=== PATIENT | female | born 1975 | race Caucasian/White ===

== ENCOUNTER 2017-03-07 11:32 | Emergency (ER) | payer OTHER ==
[~2017-03-07] VITALS: Ht 149.9 cm; Wt 62.2 kg
[~2017-03-07 11:32] MED LIST: FLUD.1 PO; LEVE1000 PO; LORA1TAB3 PO; OMEP20 PO; SERT100T12 PO; SUMA25TA9 PO; TOPI100T37 PO
[2017-03-07] MEDS ORDERED: LORA10TA7 PO (11:51)
[2017-03-07] MEDS ORDERED: GABA-529 PO (11:51)
[2017-03-07] MEDS ORDERED: LORazepam 2 MG/ML VIAL IVP ONE (12:15)
[2017-03-07] MEDS ORDERED: LevETIRAcetam 500 MG in DEXTROSE 5%-WATER 100 ML IV ONE (12:15)
[2017-03-07 12:30] LABS: GLUCOSE, URINE (UA) NEGATIVE (NEGATIVE); KETONES,URINE NEGATIVE (NEGATIVE); LEUKOCYTE ESTERASE ,URINE TRACE (NEGATIVE); OCCULT BLOOD,URINE MODERATE (NEGATIVE); PROTEIN,URINE NEGATIVE (NEGATIVE)
[2017-03-07 12:32] LABS: ADD UA MICROSCOPIC YES; APPEARANCE,URINE HAZY (CLEAR)
[2017-03-07 12:37] LABS: SQUAMOUS EPITHELIAL CELL,UR Moderate /LPF (None Seen)
[2017-03-07 12:45] LABS: BASOPHILS # (AUTO) 0.01 K/uL (0.00-0.20); BASOPHILS % (AUTO) 0.1 % (0.0-2.0); EOSINOPHILS # (AUTO) 0.04 K/uL (0.00-0.70); EOSINOPHILS % (AUTO) 0.67 % (1.0-6.0); HEMATOCRIT 35.7 % (36-46); HEMOGLOBIN 12.3 g/dL (12.0-16.0); LYMPHOCYTES # (AUTO) 1.7 K/uL (1.0-4.8); LYMPHOCYTES % (AUTO) 26.2 % (22.0-44.0); MEAN CORPUSCULAR HEMOGLOBIN 31.5 pg (26.0-34.0); MEAN CORPUSCULAR HGB CONC 34.5 G/dL (31.0-37.0); MEAN CORPUSCULAR VOLUME 91 fL (80-100); MONOCYTES # (AUTO) 0.4 K/uL (0.1-1.0); NEUTROPHILS # (AUTO) 4.5 K/uL (1.8-7.7); NEUTROPHILS % (AUTO) 67.1 % (40.0-70.0); PLATELET COUNT (AUTO) 223 K/uL (150-450); RED CELL DISTRIBUTION WIDTH 13.6 % (11.5-14.5); WHITE BLOOD COUNT (AUTO) 6.6 K/uL (4.5-11.0)
[2017-03-07 12:59] LABS: ANION GAP 9 mmol/L (8-16); CALCIUM, TOTAL 8.6 mg/dL (8.8-10.5); CARBON DIOXIDE 25 mmol/L (22-29); CHLORIDE 107 mmol/L (98-107); CREATININE 0.64 mg/dL (0.60-1.30); GLOMERULAR FILTR. RATE CALC > 60 mL/min (>60); POTASSIUM 3.7 mmol/L (3.5-5.1); SODIUM SERUM 141 mmol/L (136-145); UREA NITROGEN, BLOOD 14 mg/dL (7-18)
[2017-03-07 13:01] LABS: ALANINE AMINOTRANSFERASE 42 U/L (12-78); ALBUMIN 3.5 g/dL (3.4-5.0); ASPARTATE AMINOTRANSFERASE 32 U/L (15-37); BILIRUBIN,TOTAL 0.2 mg/dL (0.1-1.0); TOTAL PROTEIN, SERUM 7.2 g/dL (6.4-8.2)
[2017-03-07] MEDS ORDERED: SODIUM CHLORIDE 0.9% 1,000 ML IV ONE ×3 (13:15)
[2017-03-07 14:42] VITALS: BP 96/60
== END 2017-03-07 14:44 | disposition home or self-care (01) ==
LOC: EMS 11:34
DX: G40.909 Epilepsy, unspecified, not intractable, without status epilepticus (principal); F32.9 Major depressive disorder, single episode, unspecified; F41.9 Anxiety disorder, unspecified; Z88.8 Allergy status to other drugs, medicaments and biological substances
CPT/HCPCS: 36415; 80053; 81001; 85025; 96361; 96365; 96374; 99284; J0712; J2060; J7030; J7060

== ENCOUNTER 2017-03-12 21:56 | Emergency (ER) | payer OTHER ==
[~2017-03-12] VITALS: Ht 149.9 cm; Wt 61.5 kg
[~2017-03-12 21:56] MED LIST changes: +GABA-529 PO; +LORA10TA7 PO
[2017-03-12] MEDS ORDERED: CEPH500 PO (21:59)
[2017-03-12 22:33] LABS: BASOPHILS % (AUTO) 0.5 % (0.0-2.0); HEMATOCRIT 37.2 % (36-46); HEMOGLOBIN 12.7 g/dL (12.0-16.0); LYMPHOCYTES # (AUTO) 2.4 K/uL (1.0-4.8); LYMPHOCYTES % (AUTO) 31.8 % (22.0-44.0); MEAN CORPUSCULAR HEMOGLOBIN 31.5 pg (26.0-34.0); MEAN CORPUSCULAR HGB CONC 34.2 G/dL (31.0-37.0); MEAN CORPUSCULAR VOLUME 92 fL (80-100); MONOCYTES # (AUTO) 0.6 K/uL (0.1-1.0); MONOCYTES % (AUTO) 7.6 % (2.0-9.0); NEUTROPHILS # (AUTO) 4.4 K/uL (1.8-7.7); NEUTROPHILS % (AUTO) 59.1 % (40.0-70.0); PLATELET COUNT (AUTO) 263 K/uL (150-450); RED BLOOD CELL COUNT(AUTO) 4.04 MIL/uL (4.00-5.20); RED CELL DISTRIBUTION WIDTH 13.2 % (11.5-14.5); WHITE BLOOD COUNT (AUTO) 7.4 K/uL (4.5-11.0)
[2017-03-12 23:12] LABS: ANION GAP 10 mmol/L (8-16); CARBON DIOXIDE 24 mmol/L (22-29); CHLORIDE 104 mmol/L (98-107); CREATININE 0.78 mg/dL (0.60-1.30); GLOMERULAR FILTR. RATE CALC > 60 mL/min (>60); POTASSIUM 3.2 mmol/L (3.5-5.1); SODIUM SERUM 138 mmol/L (136-145); UREA NITROGEN, BLOOD 11 mg/dL (7-18)
[2017-03-12 23:19] LABS: ALANINE AMINOTRANSFERASE 38 U/L (12-78); ALBUMIN 3.8 g/dL (3.4-5.0); ASPARTATE AMINOTRANSFERASE 19 U/L (15-37); BILIRUBIN,TOTAL 0.2 mg/dL (0.1-1.0); TOTAL PROTEIN, SERUM 7.8 g/dL (6.4-8.2)
[2017-03-13] MEDS ORDERED: LevETIRAcetam 1,000 MG in DEXTROSE 5%-WATER 100 ML IV ONE (01:30)
[2017-03-13] MEDS ORDERED: LORazepam 2 MG/ML VIAL IVP ONE (01:30)
[2017-03-13] MEDS ORDERED: POTASSIUM CHLORIDE 10% 40 MEQ/30 ML LIQUID UDCUP PO ONE (01:30)
[2017-03-13 01:33] LABS: APPEARANCE,URINE CLEAR (CLEAR); GLUCOSE, URINE (UA) NEGATIVE (NEGATIVE); KETONES,URINE NEGATIVE (NEGATIVE); LEUKOCYTE ESTERASE ,URINE NEGATIVE (NEGATIVE); OCCULT BLOOD,URINE NEGATIVE (NEGATIVE); PH,URINE 6.5 (5.0-8.0); PROTEIN,URINE NEGATIVE (NEGATIVE)
[2017-03-13 01:34] LABS: ADD UA MICROSCOPIC NO
[2017-03-13 03:03] VITALS: BP 102/62
[2017-03-13] MEDS ORDERED: ALBU8.5H8 IH (03:25)
[2017-03-13] MEDS ORDERED: MOME13HF2 IH (03:25)
[2017-03-13] MEDS ORDERED: FLUT16H NASAL (03:25)
[2017-03-13] MEDS ORDERED: LEVE500T53 PO (03:29)
[2017-03-13] MEDS ORDERED: LORazepam 2 MG TABLET PO ONE (04:00)
== END 2017-03-13 04:04 | disposition home or self-care (01) ==
LOC: EMS 21:57
DX: G40.909 Epilepsy, unspecified, not intractable, without status epilepticus (principal); E87.6 Hypokalemia; Z88.8 Allergy status to other drugs, medicaments and biological substances
CPT/HCPCS: 36415; 80053; 80307; 81003; 84703; 85025; 96361; 96374; 99284; J0712; J2060; J7060

== ENCOUNTER 2017-03-14 14:48 | Emergency (ER) | payer OTHER ==
[~2017-03-14] VITALS: Ht 149.9 cm; Wt 59.1 kg
[~2017-03-14 14:48] MED LIST changes: +ALBU8.5H8 IH; +CEPH500 PO; +FLUT16H NASAL; +LEVE500T53 PO; +MOME13HF2 IH
[2017-03-14] MEDS ORDERED: SODIUM CHLORIDE 0.9% 1,000 ML IV ONE (15:30)
[2017-03-14 15:44] LABS: BASOPHILS % (AUTO) 0.5 % (0.0-2.0); EOSINOPHILS % (AUTO) 0.7 % (1.0-6.0); HEMATOCRIT 35.9 % (36-46); HEMOGLOBIN 12.1 g/dL (12.0-16.0); LYMPHOCYTES # (AUTO) 1.7 K/uL (1.0-4.8); LYMPHOCYTES % (AUTO) 21.4 % (22.0-44.0); MEAN CORPUSCULAR HEMOGLOBIN 31.2 pg (26.0-34.0); MEAN CORPUSCULAR HGB CONC 33.8 G/dL (31.0-37.0); MEAN CORPUSCULAR VOLUME 92 fL (80-100); MONOCYTES # (AUTO) 0.4 K/uL (0.1-1.0); MONOCYTES % (AUTO) 5.4 % (2.0-9.0); NEUTROPHILS # (AUTO) 5.6 K/uL (1.8-7.7); PLATELET COUNT (AUTO) 269 K/uL (150-450); RED BLOOD CELL COUNT(AUTO) 3.89 MIL/uL (4.00-5.20); RED CELL DISTRIBUTION WIDTH 13.4 % (11.5-14.5); WHITE BLOOD COUNT (AUTO) 7.8 K/uL (4.5-11.0)
[2017-03-14 15:57] LABS: GLUCOSE,POINT OF CARE 84 MG/DL (70-110)
[2017-03-14 16:01] LABS: ANION GAP 12 mmol/L (8-16); CALCIUM, TOTAL 8.7 mg/dL (8.8-10.5); CARBON DIOXIDE 22 mmol/L (22-29); CHLORIDE 106 mmol/L (98-107); CREATININE 0.64 mg/dL (0.60-1.30); GLOMERULAR FILTR. RATE CALC > 60 mL/min (>60); POTASSIUM 3.6 mmol/L (3.5-5.1); SODIUM SERUM 140 mmol/L (136-145); UREA NITROGEN, BLOOD 8 mg/dL (7-18)
[2017-03-14 16:05] LABS: ALANINE AMINOTRANSFERASE 35 U/L (12-78); ALBUMIN 3.7 g/dL (3.4-5.0); ASPARTATE AMINOTRANSFERASE 17 U/L (15-37); BILIRUBIN,TOTAL 0.3 mg/dL (0.1-1.0); TOTAL PROTEIN, SERUM 7.6 g/dL (6.4-8.2)
[2017-03-14 16:57] VITALS: BP 102/82
== END 2017-03-14 16:58 | disposition home or self-care (01) ==
LOC: EMS 14:51
DX: G40.909 Epilepsy, unspecified, not intractable, without status epilepticus (principal); Z88.8 Allergy status to other drugs, medicaments and biological substances
CPT/HCPCS: 36415; 70450; 80053; 81025; 82948; 82962; 84484; 85025; 93005; 96360; 99285; J7030

== ENCOUNTER 2017-03-22 11:11 | Emergency (ER) | payer OTHER ==
[~2017-03-22] VITALS: Ht 149.9 cm; Wt 59.0 kg
[~2017-03-22 11:11] MED LIST changes: -LEVE1000 PO; -LORA10TA7 PO; -OMEP20 PO; -SUMA25TA9 PO
[2017-03-22] MEDS ORDERED: LORA10TA7 PO (11:41)
[2017-03-22] MEDS ORDERED: OMEP20 PO (11:41)
[2017-03-22] MEDS ORDERED: CETI-290 PO (11:41)
[2017-03-22] MEDS ORDERED: ZOLM2.5T6 PO (11:41)
[2017-03-22 11:42] LABS: GLUCOSE,POINT OF CARE 107 MG/DL (70-110)
[2017-03-22 13:24] VITALS: BP 95/51
== END 2017-03-22 14:20 | disposition home or self-care (01) ==
LOC: EMS 11:13
DX: R56.9 Unspecified convulsions (principal); Z88.8 Allergy status to other drugs, medicaments and biological substances
CPT/HCPCS: 81025; 82962; 99283

== ENCOUNTER 2017-05-17 19:23 | Emergency (ER) | payer OTHER ==
[~2017-05-17] VITALS: Ht 149.9 cm; Wt 66.8 kg
[~2017-05-17 19:23] MED LIST changes: +CETI-290 PO; +LORA10TA7 PO; +OMEP20 PO; +ZOLM2.5T6 PO
[2017-05-17 20:32] LABS: BASOPHILS # (AUTO) 0.03 K/uL (0.00-0.20); BASOPHILS % (AUTO) 0.5 % (0.0-2.0); EOSINOPHILS # (AUTO) 0.06 K/uL (0.00-0.70); EOSINOPHILS % (AUTO) 0.79 % (1.0-6.0); HEMATOCRIT 37.4 % (36-46); HEMOGLOBIN 12.8 g/dL (12.0-16.0); LYMPHOCYTES # (AUTO) 2.2 K/uL (1.0-4.8); LYMPHOCYTES % (AUTO) 28.2 % (22.0-44.0); MEAN CORPUSCULAR HEMOGLOBIN 31.3 pg (26.0-34.0); MEAN CORPUSCULAR HGB CONC 34.2 G/dL (31.0-37.0); MEAN CORPUSCULAR VOLUME 92 fL (80-100); MONOCYTES # (AUTO) 0.5 K/uL (0.1-1.0); MONOCYTES % (AUTO) 6.3 % (2.0-9.0); NEUTROPHILS % (AUTO) 64.3 % (40.0-70.0); PLATELET COUNT (AUTO) 230 K/uL (150-450); RED BLOOD CELL COUNT(AUTO) 4.09 MIL/uL (4.00-5.20); RED CELL DISTRIBUTION WIDTH 13.3 % (11.5-14.5); WHITE BLOOD COUNT (AUTO) 7.7 K/uL (4.5-11.0)
[2017-05-17 20:52] LABS: ANION GAP 9 mmol/L (8-16); CALCIUM, TOTAL 8.7 mg/dL (8.8-10.5); CARBON DIOXIDE 23 mmol/L (22-29); CHLORIDE 105 mmol/L (98-107); CREATININE 0.64 mg/dL (0.60-1.30); GLOMERULAR FILTR. RATE CALC > 60 mL/min (>60); POTASSIUM 3.3 mmol/L (3.5-5.1); SODIUM SERUM 137 mmol/L (136-145); UREA NITROGEN, BLOOD 10 mg/dL (7-18)
[2017-05-17 20:58] LABS: ALANINE AMINOTRANSFERASE 27 U/L (12-78); ALBUMIN 3.6 g/dL (3.4-5.0); ASPARTATE AMINOTRANSFERASE 21 U/L (15-37); BILIRUBIN,TOTAL 0.2 mg/dL (0.1-1.0); THYROID STIMULATING HORMONE 4.46 uIU/mL (0.36-3.74); TOTAL PROTEIN, SERUM 7.5 g/dL (6.4-8.2)
[2017-05-17] MEDS ORDERED: SODIUM CHLORIDE 0.9% 1,000 ML IV ONE (21:15)
[2017-05-17] MEDS ORDERED: ALPRAZolam 0.25 MG TABLET PO ONE (21:30)
[2017-05-17 21:56] LABS: APPEARANCE,URINE CLEAR (CLEAR); GLUCOSE, URINE (UA) NEGATIVE (NEGATIVE); KETONES,URINE NEGATIVE (NEGATIVE); LEUKOCYTE ESTERASE ,URINE NEGATIVE (NEGATIVE); PROTEIN,URINE NEGATIVE (NEGATIVE)
[2017-05-17 22:05] LABS: ADD UA MICROSCOPIC YES; OCCULT BLOOD,URINE SMALL (NEGATIVE); WBC,URINE None Seen /HPF (0-5)
[2017-05-17 22:06] LABS: SQUAMOUS EPITHELIAL CELL,UR Moderate /LPF (None Seen)
[2017-05-17] MEDS ORDERED: ACETAMINOPHEN 500 MG TABLET PO ONE (22:30)
[2017-05-17 23:07] VITALS: BP 91/9
== END 2017-05-17 23:24 | disposition home or self-care (01) ==
LOC: EMS 19:23
DX: G40.909 Epilepsy, unspecified, not intractable, without status epilepticus (principal); Z91.14 Patient's other noncompliance with medication regimen; Z88.8 Allergy status to other drugs, medicaments and biological substances
CPT/HCPCS: 36415; 80053; 80307; 81001; 84443; 85025; 96360; 96361; 99285; G0480; G0482; J7030

== ENCOUNTER 2017-05-19 16:53 | Emergency (ER) | payer OTHER ==
[~2017-05-19] VITALS: Ht 149.9 cm; Wt 66.8 kg
[~2017-05-19 16:53] MED LIST changes: -CEPH500 PO; -CETI-290 PO; -GABA-529 PO; -LORA10TA7 PO
[2017-05-19 19:27] LABS: BASOPHILS % (AUTO) 0.4 % (0.0-2.0); EOSINOPHILS % (AUTO) 0.7 % (1.0-6.0); HEMATOCRIT 37.8 % (36-46); HEMOGLOBIN 12.8 g/dL (12.0-16.0); LYMPHOCYTES # (AUTO) 1.8 K/uL (1.0-4.8); LYMPHOCYTES % (AUTO) 22.6 % (22.0-44.0); MEAN CORPUSCULAR HEMOGLOBIN 31.2 pg (26.0-34.0); MEAN CORPUSCULAR VOLUME 92 fL (80-100); MONOCYTES # (AUTO) 0.5 K/uL (0.1-1.0); MONOCYTES % (AUTO) 6.5 % (2.0-9.0); NEUTROPHILS # (AUTO) 5.4 K/uL (1.8-7.7); NEUTROPHILS % (AUTO) 69.8 % (40.0-70.0); PLATELET COUNT (AUTO) 269 K/uL (150-450); RED BLOOD CELL COUNT(AUTO) 4.11 MIL/uL (4.00-5.20); RED CELL DISTRIBUTION WIDTH 13.4 % (11.5-14.5); WHITE BLOOD COUNT (AUTO) 7.8 K/uL (4.5-11.0)
[2017-05-19 19:38] LABS: ANION GAP 10 mmol/L (8-16); CALCIUM, TOTAL 9.1 mg/dL (8.8-10.5); CARBON DIOXIDE 24 mmol/L (22-29); CHLORIDE 107 mmol/L (98-107); CREATININE 0.63 mg/dL (0.60-1.30); GLOMERULAR FILTR. RATE CALC > 60 mL/min (>60); SODIUM SERUM 141 mmol/L (136-145); UREA NITROGEN, BLOOD 14 mg/dL (7-18)
[2017-05-19 19:43] LABS: ALANINE AMINOTRANSFERASE 27 U/L (12-78); ALBUMIN 3.6 g/dL (3.4-5.0); ASPARTATE AMINOTRANSFERASE 16 U/L (15-37); BILIRUBIN,TOTAL 0.2 mg/dL (0.1-1.0); TOTAL PROTEIN, SERUM 7.8 g/dL (6.4-8.2)
[2017-05-19 20:28] LABS: APPEARANCE,URINE CLOUDY (CLEAR); GLUCOSE, URINE (UA) NEGATIVE (NEGATIVE); KETONES,URINE NEGATIVE (NEGATIVE); LEUKOCYTE ESTERASE ,URINE NEGATIVE (NEGATIVE); OCCULT BLOOD,URINE TRACE (NEGATIVE); PH,URINE 5.5 (5.0-8.0); PROTEIN,URINE NEGATIVE (NEGATIVE)
[2017-05-19 21:01] LABS: RBC,URINE 0-2 /HPF (0-2); SQUAMOUS EPITHELIAL CELL,UR Many /LPF (None Seen); WBC,URINE 0-2 /HPF (0-5)
[2017-05-19 21:05] VITALS: BP 110/60
== END 2017-05-19 21:07 | disposition home or self-care (01) ==
LOC: EMS 16:54
DX: F41.9 Anxiety disorder, unspecified (principal); G40.909 Epilepsy, unspecified, not intractable, without status epilepticus; F31.9 Bipolar disorder, unspecified; K21.9 Gastro-esophageal reflux disease without esophagitis; Z88.8 Allergy status to other drugs, medicaments and biological substances
CPT/HCPCS: 81025; 99284

== ENCOUNTER 2017-08-11 16:59 | Emergency (ER) | payer OTHER ==
[~2017-08-11] VITALS: Ht 149.9 cm; Wt 65.9 kg
[2017-08-11] MEDS ORDERED: MONT10TA21 PO (17:18)
[2017-08-11] MEDS ORDERED: MOME13HF IH (17:18)
[2017-08-11] MEDS ORDERED: LORA10TA7 PO (17:18)
[2017-08-11] MEDS ORDERED: NAPR-1193 PO (17:18)
[2017-08-11] MEDS ORDERED: LORazepam 2 MG TABLET PO ONE (17:30)
[2017-08-11 18:25] VITALS: BP 102/57
== END 2017-08-11 18:56 | disposition home or self-care (01) ==
LOC: EMS 17:00
DX: G40.909 Epilepsy, unspecified, not intractable, without status epilepticus (principal); F41.9 Anxiety disorder, unspecified; F13.20 Sedative, hypnotic or anxiolytic dependence, uncomplicated; F31.9 Bipolar disorder, unspecified
CPT/HCPCS: 99283

== ENCOUNTER 2017-12-09 03:20 | Emergency (ER) | payer OTHER ==
[~2017-12-09] VITALS: Ht 165.1 cm; Wt 65.9 kg
[~2017-12-09 03:20] MED LIST changes: +LORA10TA7 PO; +MOME13HF IH; -MOME13HF2 IH; +MONT10TA21 PO; +NAPR-1193 PO
[2017-12-09] MEDS ORDERED: DiphenhydrAMINE HCL 50 MG/ML VIAL IM ONE (05:30)
[2017-12-09 06:03] VITALS: BP 114/60
== END 2017-12-09 06:07 | disposition home or self-care (01) ==
LOC: EMS 03:20
DX: F41.9 Anxiety disorder, unspecified (principal); R07.89 Other chest pain; R45.4 Irritability and anger; F31.9 Bipolar disorder, unspecified; Z88.8 Allergy status to other drugs, medicaments and biological substances
CPT/HCPCS: 96372; 99284; J1200

== ENCOUNTER 2018-02-05 19:37 | Emergency (ER) | payer OTHER ==
[~2018-02-05] VITALS: Ht 149.9 cm; Wt 68.0 kg
[2018-02-05] MEDS ORDERED: IBUP-2070 PO (20:05)
[2018-02-05] MEDS ORDERED: ZOLM2.5T6 PO (20:23)
[2018-02-05] MEDS ORDERED: OMEP20 PO (20:23)
[2018-02-05] MEDS ORDERED: FLUD0.1T2 PO (20:23)
[2018-02-05] MEDS ORDERED: FLUT9.9S NASAL (20:23)
[2018-02-05] MEDS ORDERED: SERT100T12 PO (20:23)
[2018-02-05] MEDS ORDERED: LORA-192 PO (20:23)
[2018-02-05] MEDS ORDERED: MOME13HF IH (20:23)
[2018-02-05 20:50] VITALS: BP 109/52
== END 2018-02-05 20:52 | disposition home or self-care (01) ==
LOC: EMS 19:38
DX: G40.909 Epilepsy, unspecified, not intractable, without status epilepticus (principal); F41.9 Anxiety disorder, unspecified; F31.9 Bipolar disorder, unspecified; Z88.8 Allergy status to other drugs, medicaments and biological substances; Z88.5 Allergy status to narcotic agent
CPT/HCPCS: 99283

== ENCOUNTER 2018-03-20 20:15 | Emergency (ER) | payer OTHER ==
[~2018-03-20] VITALS: Ht 149.9 cm; Wt 64.5 kg
[~2018-03-20 20:15] MED LIST changes: -FLUD.1 PO; +FLUD0.1T2 PO; -FLUT16H NASAL; +FLUT9.9S NASAL; +IBUP-2070 PO; +LORA-192 PO; -LORA10TA7 PO; -LORA1TAB3 PO; -MONT10TA21 PO; -NAPR-1193 PO
[2018-03-20 20:24] VITALS: BP 102/59
== END 2018-03-20 21:40 | disposition left against medical advice (07) ==
LOC: EMS 20:18
DX: R51 Headache (principal); F41.9 Anxiety disorder, unspecified; F31.9 Bipolar disorder, unspecified; Z53.21 Procedure and treatment not carried out due to patient leaving prior to being seen by health care provider

== ENCOUNTER 2018-09-30 04:58 | Emergency (ER) | payer OTHER ==
[~2018-09-30] VITALS: Ht 149.9 cm; Wt 61.8 kg
[2018-09-30 06:39] VITALS: BP 112/60
[2018-09-30] MEDS ORDERED: LORazepam 2 MG TABLET PO ONE (06:45)
[2018-10-01] MEDS ORDERED: LEVE500T53 PO (17:57)
[2018-10-01] MEDS ORDERED: FLUT16H NASAL (17:57)
[2018-10-01] MEDS ORDERED: TOPI100T37 PO (17:57)
[2018-10-01] MEDS ORDERED: FLUD.1 PO (17:57)
[2018-10-01] MEDS ORDERED: ALBU8.5H8 IH (17:57)
[2018-10-01] MEDS ORDERED: BACL10TA PO (17:57)
[2018-10-01] MEDS ORDERED: OMEP20 PO (17:57)
[2018-10-01] MEDS ORDERED: LORA2TAB2 PO (17:57)
[2018-10-01] MEDS ORDERED: MOME13HF IH (17:57)
[2018-10-01] MEDS ORDERED: ZOLM2.5T6 PO (17:57)
[2018-10-01] MEDS ORDERED: IBUP-2070 PO (17:57)
[2018-10-01] MEDS ORDERED: SERT100T12 PO (17:57)
== END 2018-09-30 06:48 | disposition home or self-care (01) ==
LOC: EMS 04:59
DX: F41.9 Anxiety disorder, unspecified (principal); F31.9 Bipolar disorder, unspecified; F11.20 Opioid dependence, uncomplicated; Z79.899 Other long term (current) drug therapy; Z88.8 Allergy status to other drugs, medicaments and biological substances

== ENCOUNTER 2018-10-01 13:51 | Emergency (ER) | payer OTHER ==
[~2018-10-01] VITALS: Ht 162.6 cm; Wt 54.1 kg
[2018-10-01] MEDS ORDERED: LORazepam 2 MG/ML VIAL IM ONE (15:00)
[2018-10-01 15:01] LABS: BASOPHILS % (AUTO) 0.7 % (0.0-2.0); EOSINOPHILS % (AUTO) 0.4 % (1.0-6.0); HEMATOCRIT 39.5 % (36-46); LYMPHOCYTES # (AUTO) 1.7 K/uL (1.0-4.8); MEAN CORPUSCULAR HEMOGLOBIN 31.4 pg (26.0-34.0); MEAN CORPUSCULAR VOLUME 95 fL (80-100); MONOCYTES # (AUTO) 0.4 K/uL (0.1-1.0); MONOCYTES % (AUTO) 5.1 % (2.0-9.0); NEUTROPHILS # (AUTO) 5.7 K/uL (1.8-7.7); NEUTROPHILS % (AUTO) 71.8 % (40.0-70.0); PLATELET COUNT (AUTO) 279 K/uL (150-450); RED BLOOD CELL COUNT(AUTO) 4.15 MIL/uL (4.00-5.20); RED CELL DISTRIBUTION WIDTH 12.9 % (11.5-14.5)
[2018-10-01 15:17] LABS: ANION GAP 14 mmol/L (8-16); CALCIUM, TOTAL 9.8 mg/dL (8.8-10.5); CARBON DIOXIDE 21 mmol/L (22-29); CHLORIDE 105 mmol/L (98-107); GLOMERULAR FILTR. RATE CALC > 60 mL/min (>60); GLUCOSE,RANDOM 118 mg/dL (70-110); POTASSIUM 3.6 mmol/L (3.5-5.1); SODIUM SERUM 140 mmol/L (136-145); UREA NITROGEN, BLOOD 15 mg/dL (7-18)
[2018-10-01 15:29] LABS: ALANINE AMINOTRANSFERASE 22 U/L (12-78); ALBUMIN 3.8 g/dL (3.4-5.0); ALKALINE PHOSPHATASE 137 U/L (46-116); ASPARTATE AMINOTRANSFERASE 21 U/L (15-37); BILIRUBIN,TOTAL 0.3 mg/dL (0.1-1.0); HCG,QUANTITATIVE < 1 mIU/mL (0-6); LIPASE 86 U/L (73-393)
[2018-10-01] MEDS ORDERED: IBUP-2070 PO (17:57)
[2018-10-01] MEDS ORDERED: FLUD.1 PO (17:57)
[2018-10-01] MEDS ORDERED: ALBU8.5H8 IH (17:57)
[2018-10-01] MEDS ORDERED: LORA2TAB2 PO (17:57)
[2018-10-01] MEDS ORDERED: LEVE500T53 PO (17:57)
[2018-10-01] MEDS ORDERED: OMEP20 PO (17:57)
[2018-10-01] MEDS ORDERED: TOPI100T37 PO (17:57)
[2018-10-01] MEDS ORDERED: SERT100T12 PO (17:57)
[2018-10-01] MEDS ORDERED: MOME13HF IH (17:57)
[2018-10-01] MEDS ORDERED: ZOLM2.5T6 PO (17:57)
[2018-10-01] MEDS ORDERED: FLUT16H NASAL (17:57)
[2018-10-01] MEDS ORDERED: BACL10TA PO (17:57)
[2018-10-01 18:08] VITALS: BP 115/68
== END 2018-10-01 18:28 | disposition home or self-care (01) ==
LOC: EMS 13:51
DX: F41.9 Anxiety disorder, unspecified (principal); E86.0 Dehydration; R25.1 Tremor, unspecified; F31.9 Bipolar disorder, unspecified; Z88.8 Allergy status to other drugs, medicaments and biological substances
CPT/HCPCS: 36415; 71045; 80053; 83690; 84484; 84702; 85025; 93005; 96372; 99285; J2060

== ENCOUNTER 2018-10-24 21:07 | Emergency (ER) | payer OTHER ==
[~2018-10-24] VITALS: Ht 165.1 cm; Wt 62.3 kg
[~2018-10-24 21:07] MED LIST changes: +BACL10TA PO; +FLUD.1 PO; -FLUD0.1T2 PO; +FLUT16H NASAL; -FLUT9.9S NASAL; -LORA-192 PO; +LORA2TAB2 PO
[2018-10-24 22:12] LABS: ANION GAP 15 mmol/L (8-16); CALCIUM, TOTAL 9.2 mg/dL (8.8-10.5); CARBON DIOXIDE 19 mmol/L (22-29); CHLORIDE 102 mmol/L (98-107); CREATININE 0.82 mg/dL (0.60-1.30); GLOMERULAR FILTR. RATE CALC > 60 mL/min (>60); GLUCOSE,RANDOM 89 mg/dL (70-110); POTASSIUM 3.1 mmol/L (3.5-5.1); SODIUM SERUM 136 mmol/L (136-145); UREA NITROGEN, BLOOD 9 mg/dL (7-18)
[2018-10-24 22:20] LABS: BASOPHILS % (AUTO) 0.5 % (0.0-2.0); EOSINOPHILS % (AUTO) 0.3 % (1.0-6.0); HEMATOCRIT 39.2 % (36-46); HEMOGLOBIN 13.3 g/dL (12.0-16.0); LYMPHOCYTES % (AUTO) 26.3 % (22.0-44.0); MEAN CORPUSCULAR HEMOGLOBIN 31.7 pg (26.0-34.0); MEAN CORPUSCULAR VOLUME 93 fL (80-100); MONOCYTES # (AUTO) 0.5 K/uL (0.1-1.0); MONOCYTES % (AUTO) 5.9 % (2.0-9.0); NEUTROPHILS # (AUTO) 5.1 K/uL (1.8-7.7); PLATELET COUNT (AUTO) 250 K/uL (150-450)
[2018-10-24 22:24] LABS: ALANINE AMINOTRANSFERASE 24 U/L (12-78); ALKALINE PHOSPHATASE 107 U/L (46-116); ASPARTATE AMINOTRANSFERASE 22 U/L (15-37); BILIRUBIN,TOTAL 0.6 mg/dL (0.1-1.0); HCG,QUANTITATIVE < 1 mIU/mL (0-6)
[2018-10-24 22:49] LABS: AMPHET/METH SCREEN,URINE NEGATIVE (NEGATIVE); BARBITURATE SCREEN, URINE NEGATIVE (NEGATIVE); BENZODIAZEPINES SCREEN,URINE NEGATIVE (NEGATIVE); CANNABINOID SCREEN,URINE NEGATIVE (NEGATIVE); COCAINE SCREEN,URINE NEGATIVE (NEGATIVE); METHADONE SCREEN, URINE NEGATIVE (NEGATIVE); OPIATE SCREEN,URINE NEGATIVE (NEGATIVE); PHENCYCLIDINE SCREEN,URINE NEGATIVE (NEGATIVE)
[2018-10-24 23:12] VITALS: BP 102/68
[2018-10-24] MEDS ORDERED: POTASSIUM CHLORIDE 20 MEQ ER TABLET PO ONE (23:45)
[2018-10-25] MEDS ORDERED: HydrOXYzine PAMOATE 50 MG CAPSULE PO ONE (00:15)
== END 2018-10-25 00:56 | disposition home or self-care (01) ==
LOC: EMS 21:09
DX: F41.9 Anxiety disorder, unspecified (principal); E87.6 Hypokalemia; F31.9 Bipolar disorder, unspecified; Z88.8 Allergy status to other drugs, medicaments and biological substances; Z79.899 Other long term (current) drug therapy
CPT/HCPCS: 36415; 80053; 80307; 84702; 85025; 99284; G0480

== ENCOUNTER 2018-11-01 19:07 | Emergency (ER) | payer OTHER ==
[~2018-11-01] VITALS: Ht 149.9 cm; Wt 57.7 kg
[~2018-11-01 19:07] MED LIST changes: -BACL10TA PO; -IBUP-2070 PO; -LORA2TAB2 PO; -SERT100T12 PO
[2018-11-01] MEDS ORDERED: BUPR-93 PO (19:23)
[2018-11-01] MEDS ORDERED: PB/HYOSCY/ATR/SCOP/LIDO/MAALOX 55 ML BOTTLE PO ONE (21:30)
[2018-11-01] MEDS ORDERED: HydrOXYzine HCL 50 MG TABLET PO ONE (21:30)
[2018-11-01 22:00] VITALS: BP 129/81
[2018-11-02] MEDS ORDERED: FLUO-191 PO (12:26)
[2018-11-02] MEDS ORDERED: HYD25 PO (12:26)
[2018-11-02] MEDS ORDERED: BUSP10TA23 PO (12:26)
== END 2018-11-01 22:17 | disposition home or self-care (01) ==
LOC: EMS 19:08
DX: K21.9 Gastro-esophageal reflux disease without esophagitis (principal); F41.9 Anxiety disorder, unspecified; F31.9 Bipolar disorder, unspecified; Z88.8 Allergy status to other drugs, medicaments and biological substances; Z79.899 Other long term (current) drug therapy

== ENCOUNTER 2018-11-02 12:05 | Emergency (ER) | payer OTHER ==
[~2018-11-02] VITALS: Ht 149.9 cm; Wt 57.7 kg
[~2018-11-02 12:05] MED LIST changes: +BUPR-93 PO
[2018-11-02] MEDS ORDERED: HYD25 PO (12:26)
[2018-11-02] MEDS ORDERED: FLUO-191 PO (12:26)
[2018-11-02] MEDS ORDERED: BUSP10TA23 PO (12:26)
[2018-11-02] MEDS ORDERED: SODIUM CHLORIDE 0.9% 1,000 ML IV ONE (12:32)
[2018-11-02] MEDS ORDERED: HALOPERIDOL LACTATE 5 MG/ML VIAL IVP ONE (13:00)
[2018-11-02] MEDS ORDERED: DiphenhydrAMINE HCL 50 MG/ML VIAL IVP ONE (13:00)
[2018-11-02] MEDS ORDERED: PB/HYOSCY/ATR/SCOP/LIDO/MAALOX 55 ML BOTTLE PO ONE (13:15)
[2018-11-02 13:52] LABS: BASOPHILS % (AUTO) 0.7 % (0.0-2.0); EOSINOPHILS % (AUTO) 0.4 % (1.0-6.0); HEMATOCRIT 41.3 % (36-46); HEMOGLOBIN 13.8 g/dL (12.0-16.0); LYMPHOCYTES # (AUTO) 1.6 K/uL (1.0-4.8); LYMPHOCYTES % (AUTO) 33.2 % (22.0-44.0); MEAN CORPUSCULAR HEMOGLOBIN 31.6 pg (26.0-34.0); MEAN CORPUSCULAR HGB CONC 33.5 G/dL (31.0-37.0); MEAN CORPUSCULAR VOLUME 94 fL (80-100); MONOCYTES # (AUTO) 0.3 K/uL (0.1-1.0); MONOCYTES % (AUTO) 6.1 % (2.0-9.0); NEUTROPHILS # (AUTO) 2.8 K/uL (1.8-7.7); NEUTROPHILS % (AUTO) 59.6 % (40.0-70.0); PLATELET COUNT (AUTO) 233 K/uL (150-450); RED BLOOD CELL COUNT(AUTO) 4.38 MIL/uL (4.00-5.20); RED CELL DISTRIBUTION WIDTH 13.1 % (11.5-14.5)
[2018-11-02 14:01] LABS: ANION GAP 13 mmol/L (8-16); CALCIUM, TOTAL 9.2 mg/dL (8.8-10.5); CARBON DIOXIDE 24 mmol/L (22-29); CHLORIDE 103 mmol/L (98-107); CREATININE 0.91 mg/dL (0.60-1.30); GLOMERULAR FILTR. RATE CALC > 60 mL/min (>60); GLUCOSE,RANDOM 88 mg/dL (70-110); SODIUM SERUM 140 mmol/L (136-145); UREA NITROGEN, BLOOD 8 mg/dL (7-18)
[2018-11-02 14:12] LABS: ALANINE AMINOTRANSFERASE 37 U/L (12-78); ALKALINE PHOSPHATASE 104 U/L (46-116); ASPARTATE AMINOTRANSFERASE 28 U/L (15-37); BILIRUBIN,TOTAL 0.6 mg/dL (0.1-1.0); HCG,QUANTITATIVE < 1 mIU/mL (0-6); LIPASE 82 U/L (73-393); TOTAL PROTEIN, SERUM 7.9 g/dL (6.4-8.2)
[2018-11-02 14:14] LABS: FREE T4 (FREE THYROXINE) 1.2 ng/dL (0.76-1.46); THYROID STIMULATING HORMONE 0.53 uIU/mL (0.36-3.74)
[2018-11-02] MEDS ORDERED: POTASSIUM CHLORIDE 20 MEQ ER TABLET PO ONE (14:45)
[2018-11-02 15:52] LABS: APPEARANCE,URINE CLEAR (CLEAR); BILIRUBIN,URINE NEGATIVE (NEGATIVE); GLUCOSE, URINE (UA) NEGATIVE (NEGATIVE); KETONES,URINE 40 mg/dL (NEGATIVE); LEUKOCYTE ESTERASE ,URINE NEGATIVE (NEGATIVE); NITRATE,URINE NEGATIVE (NEGATIVE); OCCULT BLOOD,URINE MODERATE (NEGATIVE); PH,URINE 7.5 (5.0-8.0); PROTEIN,URINE NEGATIVE (NEGATIVE); UROBILINOGEN,URINE 0.2 mg/dL (<=1.0)
[2018-11-02 15:59] LABS: AMPHET/METH SCREEN,URINE NEGATIVE (NEGATIVE); BARBITURATE SCREEN, URINE POSITIVE (NEGATIVE); BENZODIAZEPINES SCREEN,URINE NEGATIVE (NEGATIVE); CANNABINOID SCREEN,URINE NEGATIVE (NEGATIVE); COCAINE SCREEN,URINE NEGATIVE (NEGATIVE); METHADONE SCREEN, URINE NEGATIVE (NEGATIVE); OPIATE SCREEN,URINE NEGATIVE (NEGATIVE)
[2018-11-02 16:00] LABS: PHENCYCLIDINE SCREEN,URINE NEGATIVE (NEGATIVE)
[2018-11-02 16:08] LABS: BACTERIA,URINE Rare /HPF (None Seen); SQUAMOUS EPITHELIAL CELL,UR Moderate /LPF (None Seen); WBC,URINE 0-2 /HPF (0-5)
[2018-11-02 17:35] VITALS: BP 98/62
== END 2018-11-02 18:35 | disposition home or self-care (01) ==
LOC: EMS 12:05
DX: K29.70 Gastritis, unspecified, without bleeding (principal); F41.9 Anxiety disorder, unspecified; F31.9 Bipolar disorder, unspecified; Z88.8 Allergy status to other drugs, medicaments and biological substances; Z79.899 Other long term (current) drug therapy
CPT/HCPCS: 36415; 80053; 80307; 81001; 83690; 84439; 84443; 84702; 85025; 96361; 96374; 96375; 99283; J1200; J1630; J7030

== ENCOUNTER 2018-11-10 00:37 | Emergency (ER) | payer OTHER ==
[~2018-11-10] VITALS: Ht 149.9 cm; Wt 56.8 kg
[~2018-11-10 00:37] MED LIST changes: -ALBU8.5H8 IH; -BUPR-93 PO; +BUSP10TA23 PO; -FLUD.1 PO; +FLUO-191 PO; -FLUT16H NASAL; +HYD25 PO; -MOME13HF IH; -OMEP20 PO
[2018-11-10] MEDS ORDERED: OMEP20 PO (00:54)
[2018-11-10] MEDS ORDERED: PB/HYOSCY/ATR/SCOP/LIDO/MAALOX 55 ML BOTTLE PO ONE (01:45)
[2018-11-10] MEDS ORDERED: SUCRALFATE 1 GM TABLET PO ONE (02:30)
[2018-11-10 02:54] LABS: BASOPHILS % (AUTO) 0.7 % (0.0-2.0); EOSINOPHILS % (AUTO) 0.8 % (1.0-6.0); HEMATOCRIT 39.3 % (36-46); HEMOGLOBIN 13.1 g/dL (12.0-16.0); LYMPHOCYTES # (AUTO) 1.6 K/uL (1.0-4.8); LYMPHOCYTES % (AUTO) 25.1 % (22.0-44.0); MEAN CORPUSCULAR HEMOGLOBIN 31.1 pg (26.0-34.0); MEAN CORPUSCULAR HGB CONC 33.4 G/dL (31.0-37.0); MEAN CORPUSCULAR VOLUME 93 fL (80-100); MONOCYTES # (AUTO) 0.5 K/uL (0.1-1.0); MONOCYTES % (AUTO) 7.1 % (2.0-9.0); NEUTROPHILS # (AUTO) 4.3 K/uL (1.8-7.7); NEUTROPHILS % (AUTO) 66.3 % (40.0-70.0); PLATELET COUNT (AUTO) 236 K/uL (150-450); RED BLOOD CELL COUNT(AUTO) 4.23 MIL/uL (4.00-5.20)
[2018-11-10 02:58] LABS: APPEARANCE,URINE CLOUDY (CLEAR); BILIRUBIN,URINE PRELIM. POSITIVE (NEGATIVE); GLUCOSE, URINE (UA) NEGATIVE (NEGATIVE); KETONES,URINE >=80 mg/dL (NEGATIVE); LEUKOCYTE ESTERASE ,URINE NEGATIVE (NEGATIVE); NITRATE,URINE NEGATIVE (NEGATIVE); OCCULT BLOOD,URINE NEGATIVE (NEGATIVE); PROTEIN,URINE TRACE (NEGATIVE)
[2018-11-10 03:02] LABS: ANION GAP 9 mmol/L (8-16); CALCIUM, TOTAL 9.2 mg/dL (8.8-10.5); CARBON DIOXIDE 26 mmol/L (22-29); CHLORIDE 103 mmol/L (98-107); GLOMERULAR FILTR. RATE CALC > 60 mL/min (>60); GLUCOSE,RANDOM 106 mg/dL (70-110); POTASSIUM 3.4 mmol/L (3.5-5.1); SODIUM SERUM 138 mmol/L (136-145); UREA NITROGEN, BLOOD 11 mg/dL (7-18)
[2018-11-10 03:08] LABS: ALANINE AMINOTRANSFERASE 24 U/L (12-78); ALBUMIN 3.8 g/dL (3.4-5.0); ALKALINE PHOSPHATASE 92 U/L (46-116); ASPARTATE AMINOTRANSFERASE 20 U/L (15-37); BILIRUBIN,TOTAL 0.5 mg/dL (0.1-1.0); LIPASE 80 U/L (73-393); TOTAL PROTEIN, SERUM 7.6 g/dL (6.4-8.2)
[2018-11-10 04:22] VITALS: BP 98/60
== END 2018-11-10 04:23 | disposition home or self-care (01) ==
LOC: EMS 00:46
DX: K29.70 Gastritis, unspecified, without bleeding (principal); F31.9 Bipolar disorder, unspecified; F41.9 Anxiety disorder, unspecified; Z88.8 Allergy status to other drugs, medicaments and biological substances; Z79.899 Other long term (current) drug therapy

== ENCOUNTER 2018-11-12 11:48 | Emergency (ER) | payer OTHER ==
[~2018-11-12] VITALS: Ht 149.9 cm; Wt 55.9 kg
[~2018-11-12 11:48] MED LIST changes: +OMEP20 PO
[2018-11-12 12:25] VITALS: BP 112/64
[2018-11-12 13:46] LABS: BASOPHILS % (AUTO) 0.7 % (0.0-2.0); EOSINOPHILS % (AUTO) 0.4 % (1.0-6.0); HEMATOCRIT 41.2 % (36-46); HEMOGLOBIN 13.8 g/dL (12.0-16.0); LYMPHOCYTES # (AUTO) 1.6 K/uL (1.0-4.8); LYMPHOCYTES % (AUTO) 22.8 % (22.0-44.0); MEAN CORPUSCULAR HEMOGLOBIN 31.6 pg (26.0-34.0); MEAN CORPUSCULAR HGB CONC 33.6 G/dL (31.0-37.0); MEAN CORPUSCULAR VOLUME 94 fL (80-100); MONOCYTES # (AUTO) 0.4 K/uL (0.1-1.0); MONOCYTES % (AUTO) 6.5 % (2.0-9.0); NEUTROPHILS # (AUTO) 4.8 K/uL (1.8-7.7); NEUTROPHILS % (AUTO) 69.6 % (40.0-70.0); PLATELET COUNT (AUTO) 231 K/uL (150-450); RED BLOOD CELL COUNT(AUTO) 4.37 MIL/uL (4.00-5.20); RED CELL DISTRIBUTION WIDTH 13.3 % (11.5-14.5)
[2018-11-12 13:56] LABS: ANION GAP 16 mmol/L (8-16); CALCIUM, TOTAL 9.5 mg/dL (8.8-10.5); CARBON DIOXIDE 21 mmol/L (22-29); CHLORIDE 101 mmol/L (98-107); CREATININE 0.61 mg/dL (0.60-1.30); GLOMERULAR FILTR. RATE CALC > 60 mL/min (>60); GLUCOSE,RANDOM 93 mg/dL (70-110); POTASSIUM 3.5 mmol/L (3.5-5.1); SODIUM SERUM 138 mmol/L (136-145); UREA NITROGEN, BLOOD 8 mg/dL (7-18)
[2018-11-12 14:02] LABS: ALANINE AMINOTRANSFERASE 28 U/L (12-78); ALBUMIN 4.1 g/dL (3.4-5.0); ALKALINE PHOSPHATASE 96 U/L (46-116); ASPARTATE AMINOTRANSFERASE 25 U/L (15-37); BILIRUBIN,TOTAL 0.5 mg/dL (0.1-1.0); LIPASE 64 U/L (73-393); TOTAL PROTEIN, SERUM 8.3 g/dL (6.4-8.2)
== END 2018-11-12 16:58 | disposition left against medical advice (07) ==
LOC: EMS 11:48
DX: R10.9 Unspecified abdominal pain (principal); Z53.21 Procedure and treatment not carried out due to patient leaving prior to being seen by health care provider

== ENCOUNTER 2018-12-24 20:23 | Emergency (ER) | payer OTHER ==
[~2018-12-24] VITALS: Ht 149.9 cm; Wt 59.1 kg
[2018-12-24 20:42] VITALS: BP 106/74
[2018-12-24] MEDS ORDERED: SERT50TA12 PO (20:45)
[2018-12-24] MEDS ORDERED: LORA-192 PO (20:46)
[2018-12-24] MEDS ORDERED: BACL10TA PO (20:46)
[2018-12-24] MEDS ORDERED: LORazepam 2 MG TABLET PO ONE (21:15)
== END 2018-12-24 21:20 | disposition home or self-care (01) ==
LOC: EMS 20:30
DX: F41.9 Anxiety disorder, unspecified (principal); F31.9 Bipolar disorder, unspecified

== ENCOUNTER 2019-01-15 13:13 | Emergency (ER) | payer OTHER ==
[~2019-01-15] VITALS: Ht 157.5 cm; Wt 55.7 kg
[~2019-01-15 13:13] MED LIST changes: +BACL10TA PO; +LORA-192 PO; +SERT50TA12 PO
[2019-01-15 14:58] VITALS: BP 92/47
== END 2019-01-15 15:41 | disposition home or self-care (01) ==
LOC: EMS 13:14
DX: R10.13 Epigastric pain (principal); F41.9 Anxiety disorder, unspecified; R25.1 Tremor, unspecified; F31.9 Bipolar disorder, unspecified

== ENCOUNTER 2019-01-31 19:29 | Emergency (ER) | payer OTHER ==
[~2019-01-31] VITALS: Ht 149.9 cm; Wt 59.1 kg
[2019-01-31 21:35] VITALS: BP 124/66
== END 2019-01-31 22:24 | disposition home or self-care (01) ==
LOC: EMS 19:30
DX: F41.9 Anxiety disorder, unspecified (principal); F31.9 Bipolar disorder, unspecified

== ENCOUNTER 2019-02-18 16:44 | Emergency (ER) | payer OTHER ==
[~2019-02-18] VITALS: Ht 160 cm; Wt 63.6 kg
[2019-02-18] MEDS ORDERED: TRAZ-220 PO (17:09)
[2019-02-18] MEDS ORDERED: LORazepam 2 MG TABLET PO ONE (17:30)
[2019-02-18] MEDS ORDERED: LORazepam 1 MG TABLET PO ONE (17:30)
[2019-02-18 20:00] VITALS: BP 107/63
== END 2019-02-18 20:00 | disposition home or self-care (01) ==
LOC: EMS 16:47
DX: F41.9 Anxiety disorder, unspecified (principal); F31.9 Bipolar disorder, unspecified; Z79.899 Other long term (current) drug therapy

== ENCOUNTER 2019-05-09 13:33 | Emergency (ER) | payer OTHER ==
[~2019-05-09] VITALS: Ht 160 cm; Wt 63.6 kg
[~2019-05-09 13:33] MED LIST changes: -BUSP10TA23 PO; -FLUO-191 PO; -HYD25 PO; -LORA-192 PO; -OMEP20 PO; -TOPI100T37 PO; +TRAZ-220 PO; -ZOLM2.5T6 PO
[2019-05-09] MEDS ORDERED: LORazepam 2 MG/ML VIAL IVP ONE (15:00)
[2019-05-09] MEDS ORDERED: LevETIRAcetam 1,000 MG in DEXTROSE 5%-WATER 100 ML IV ONE (15:00)
[2019-05-09 15:30] LABS: AMPHET/METH SCREEN,URINE NEGATIVE (NEGATIVE); BARBITURATE SCREEN, URINE NEGATIVE (NEGATIVE); BENZODIAZEPINES SCREEN,URINE NEGATIVE (NEGATIVE); CANNABINOID SCREEN,URINE NEGATIVE (NEGATIVE); COCAINE SCREEN,URINE NEGATIVE (NEGATIVE); METHADONE SCREEN, URINE NEGATIVE (NEGATIVE); OPIATE SCREEN,URINE NEGATIVE (NEGATIVE)
[2019-05-09] MEDS ORDERED: LevETIRAcetam 500 MG TABLET PO ONE (15:30)
[2019-05-09] MEDS ORDERED: LORazepam 1 MG TABLET PO ONE (15:30)
[2019-05-09 15:38] LABS: PHENCYCLIDINE SCREEN,URINE NEGATIVE (NEGATIVE)
[2019-05-09 16:14] LABS: BASOPHILS % (AUTO) 0.5 % (0.0-2.0); EOSINOPHILS % (AUTO) 0.4 % (1.0-6.0); HEMATOCRIT 40.2 % (36-46); HEMOGLOBIN 13.5 g/dL (12.0-16.0); LYMPHOCYTES # (AUTO) 1.8 K/uL (1.0-4.8); LYMPHOCYTES % (AUTO) 31.8 % (22.0-44.0); MEAN CORPUSCULAR HEMOGLOBIN 32.5 pg (26.0-34.0); MEAN CORPUSCULAR HGB CONC 33.5 G/dL (31.0-37.0); MEAN CORPUSCULAR VOLUME 97 fL (80-100); MONOCYTES # (AUTO) 0.3 K/uL (0.1-1.0); MONOCYTES % (AUTO) 5.5 % (2.0-9.0); NEUTROPHILS # (AUTO) 3.5 K/uL (1.8-7.7); NEUTROPHILS % (AUTO) 61.8 % (40.0-70.0); PLATELET COUNT (AUTO) 222 K/uL (150-450); RED BLOOD CELL COUNT(AUTO) 4.15 MIL/uL (4.00-5.20); RED CELL DISTRIBUTION WIDTH 13.2 % (11.5-14.5)
[2019-05-09 16:15] LABS: ANION GAP 12 mmol/L (8-16); CALCIUM, TOTAL 8.9 mg/dL (8.8-10.5); CARBON DIOXIDE 22 mmol/L (22-29); CHLORIDE 104 mmol/L (98-107); CREATININE 0.62 mg/dL (0.60-1.30); GLOMERULAR FILTR. RATE CALC > 60 mL/min (>60); GLUCOSE,RANDOM 84 mg/dL (70-110); POTASSIUM 3.3 mmol/L (3.5-5.1); SODIUM SERUM 138 mmol/L (136-145); UREA NITROGEN, BLOOD 7 mg/dL (7-18)
[2019-05-09 16:28] LABS: ALANINE AMINOTRANSFERASE 27 U/L (12-78); ALBUMIN 3.9 g/dL (3.4-5.0); ALKALINE PHOSPHATASE 121 U/L (46-116); ASPARTATE AMINOTRANSFERASE 19 U/L (15-37); BILIRUBIN,TOTAL 0.6 mg/dL (0.1-1.0); HCG,QUANTITATIVE < 1 mIU/mL (0-6); TOTAL PROTEIN, SERUM 7.8 g/dL (6.4-8.2)
[2019-05-09] MEDS ORDERED: POTASSIUM CHLORIDE 20 MEQ ER TABLET PO ONE (16:30)
[2019-05-09 16:50] VITALS: BP 118/83
== END 2019-05-09 16:59 | disposition home or self-care (01) ==
LOC: EMS 13:36
DX: F41.9 Anxiety disorder, unspecified (principal); F31.9 Bipolar disorder, unspecified; F11.10 Opioid abuse, uncomplicated; Z79.899 Other long term (current) drug therapy
CPT/HCPCS: 36415; 80053; 80307; 84702; 85025; 99284; G0480; J0712; J7060

== ENCOUNTER 2019-05-11 12:08 | Emergency (ER) | payer OTHER ==
[~2019-05-11] VITALS: Ht 160 cm; Wt 54.8 kg
[~2019-05-11 12:08] MED LIST changes: -SERT50TA12 PO; -TRAZ-220 PO
[2019-05-11] MEDS ORDERED: TOPI100T37 PO (12:41)
[2019-05-11] MEDS ORDERED: SODIUM CHLORIDE 0.9% 1,000 ML IV ONE (12:45)
[2019-05-11] MEDS ORDERED: LORazepam 2 MG/ML VIAL IM ONE (13:15)
[2019-05-11 14:09] VITALS: BP 98/65
== END 2019-05-11 14:26 | disposition home or self-care (01) ==
LOC: EMS 12:09
DX: F41.9 Anxiety disorder, unspecified (principal); G40.909 Epilepsy, unspecified, not intractable, without status epilepticus; F31.9 Bipolar disorder, unspecified; F11.20 Opioid dependence, uncomplicated; Z90.49 Acquired absence of other specified parts of digestive tract; Z98.890 Other specified postprocedural states; Z79.899 Other long term (current) drug therapy
CPT/HCPCS: 96372; 99284; J2060; J7030

== ENCOUNTER 2019-05-22 19:54 | Emergency (ER) | payer OTHER ==
[~2019-05-22] VITALS: Ht 149.9 cm; Wt 53.6 kg
[~2019-05-22 19:54] MED LIST changes: +TOPI100T37 PO
[2019-05-22] MEDS ORDERED: LORazepam 1 MG TABLET PO ONE (21:45)
[2019-05-22 22:05] VITALS: BP 111/70
== END 2019-05-22 22:10 | disposition home or self-care (01) ==
LOC: EMS 19:55
DX: F41.9 Anxiety disorder, unspecified (principal); F31.9 Bipolar disorder, unspecified; Z90.89 Acquired absence of other organs

== ENCOUNTER 2019-06-18 21:55 | Emergency (ER) | payer MEDICAID, OTHER ==
[~2019-06-18] VITALS: Ht 149.9 cm; Wt 52.3 kg
[2019-06-18] MEDS ORDERED: KETOROLAC TROMETHAMINE 30 MG/ML VIAL IVP ONE (23:00)
[2019-06-18] MEDS ORDERED: METOCLOPRAMIDE HCL 5 MG/ML 2 ML VIAL IVP ONE (23:00)
[2019-06-18] MEDS ORDERED: DEXAMETHASONE SOD PHOS 4 MG/ML 5 ML VIAL IVP ONE (23:00)
[2019-06-18] MEDS ORDERED: DiphenhydrAMINE HCL 50 MG/ML VIAL IVP ONE (23:00)
[2019-06-18] MEDS ORDERED: SODIUM CHLORIDE 0.9% 1,000 ML IV ONE (23:00)
[2019-06-18 23:21] LABS: BASOPHILS % (AUTO) 0.3 % (0.0-2.0); EOSINOPHILS % (AUTO) 0.9 % (1.0-6.0); HEMATOCRIT 36.2 % (36-46); HEMOGLOBIN 12.5 g/dL (12.0-16.0); LYMPHOCYTES # (AUTO) 2.5 K/uL (1.0-4.8); LYMPHOCYTES % (AUTO) 42.3 % (22.0-44.0); MEAN CORPUSCULAR HEMOGLOBIN 33.5 pg (26.0-34.0); MEAN CORPUSCULAR HGB CONC 34.5 G/dL (31.0-37.0); MEAN CORPUSCULAR VOLUME 97 fL (80-100); MONOCYTES # (AUTO) 0.4 K/uL (0.1-1.0); MONOCYTES % (AUTO) 6.6 % (2.0-9.0); NEUTROPHILS % (AUTO) 49.9 % (40.0-70.0); PLATELET COUNT (AUTO) 200 K/uL (150-450); RED BLOOD CELL COUNT(AUTO) 3.73 MIL/uL (4.00-5.20); RED CELL DISTRIBUTION WIDTH 12.9 % (11.5-14.5)
[2019-06-18 23:30] LABS: ANION GAP 12 mmol/L (8-16); CALCIUM, TOTAL 8.4 mg/dL (8.8-10.5); CARBON DIOXIDE 21 mmol/L (22-29); CHLORIDE 106 mmol/L (98-107); CREATININE 0.88 mg/dL (0.60-1.30); GLOMERULAR FILTR. RATE CALC > 60 mL/min (>60); GLUCOSE,RANDOM 99 mg/dL (70-110); POTASSIUM 3.5 mmol/L (3.5-5.1); SODIUM SERUM 139 mmol/L (136-145); UREA NITROGEN, BLOOD 7 mg/dL (7-18)
[2019-06-19 01:20] VITALS: BP 108/64
[2019-06-19] MEDS ORDERED: ONDANSETRON HCL 4 MG/2 ML VIAL IVP ONE (01:30)
== END 2019-06-19 01:45 | disposition home or self-care (01) ==
LOC: EMS 21:56
DX: G43.109 Migraine with aura, not intractable, without status migrainosus (principal); R42 Dizziness and giddiness; K21.9 Gastro-esophageal reflux disease without esophagitis; M19.90 Unspecified osteoarthritis, unspecified site; F11.10 Opioid abuse, uncomplicated; F41.9 Anxiety disorder, unspecified; F31.9 Bipolar disorder, unspecified; Z90.49 Acquired absence of other specified parts of digestive tract; Z79.899 Other long term (current) drug therapy; Z98.890 Other specified postprocedural states
CPT/HCPCS: 36415; 80048; 85025; 96361; 96374; 96375 ×2; 99283; J1100; J1200; J1885; J2405; J2765; J7030

== ENCOUNTER 2019-06-19 14:44 | Emergency (ER) | payer MEDICAID ==
[~2019-06-19] VITALS: Ht 149.9 cm; Wt 56.8 kg
[2019-06-19] MEDS ORDERED: HALOPERIDOL LACTATE 5 MG/ML VIAL IM ONE (17:45)
[2019-06-19 17:58] VITALS: BP 106/74
== END 2019-06-19 17:59 | disposition home or self-care (01) ==
LOC: EMS 14:46
DX: F41.9 Anxiety disorder, unspecified (principal); K21.9 Gastro-esophageal reflux disease without esophagitis; M19.90 Unspecified osteoarthritis, unspecified site; F11.10 Opioid abuse, uncomplicated; F31.9 Bipolar disorder, unspecified; Z90.49 Acquired absence of other specified parts of digestive tract; Z79.899 Other long term (current) drug therapy; Z98.890 Other specified postprocedural states
CPT/HCPCS: 93005; 96372; 99284; J1630

== ENCOUNTER 2019-07-02 19:29 | Emergency (ER) | payer MEDICAID ==
[~2019-07-02] VITALS: Ht 149.9 cm; Wt 52.3 kg
[2019-07-02 19:37] VITALS: BP 119/52
[2019-07-02] MEDS ORDERED: MIRT-92 PO (19:55)
== END 2019-07-03 00:10 | disposition left against medical advice (07) ==
LOC: EMS 19:31
DX: F41.9 Anxiety disorder, unspecified (principal); Z53.21 Procedure and treatment not carried out due to patient leaving prior to being seen by health care provider

== ENCOUNTER 2020-09-11 18:29 | Emergency (ER) | payer MEDICAID ==
[~2020-09-11] VITALS: Ht 149.9 cm; Wt 61.8 kg
[~2020-09-11 18:29] MED LIST changes: -BACL10TA PO; +CHOL100044 PO; +MIRT-89 PO; +PHENY100 PO; +SULF1TAB42 PO
[2020-09-11] MEDS ORDERED: LEVE250T55 PO (21:18)
[2020-09-11] MEDS ORDERED: LORA-1000 PO (21:18)
[2020-09-11] MEDS: KETOROLAC TROMETHAMINE 30 MG/ML VIAL IVP ONE ×2 (22:30→23:04)
[2020-09-11] MEDS ORDERED: ACETAMINOPHEN 500 MG TABLET PO ONE (22:30)
[2020-09-11] MEDS: DiphenhydrAMINE HCL 50 MG/ML VIAL IVP ONE ×2 (22:30→23:02)
[2020-09-11] MEDS ORDERED: DEXAMETHASONE SOD PHOS 4 MG/ML 5 ML VIAL IVP ONE (22:30)
[2020-09-11] MEDS: METOCLOPRAMIDE HCL 5 MG/ML 2 ML VIAL IVP ONE ×2 (22:30→23:03)
[2020-09-11 22:55] LABS: ANION GAP 9 mmol/L (8-16); CARBON DIOXIDE 27 mmol/L (22-29); CHLORIDE 105 mmol/L (98-107); GLOMERULAR FILTR. RATE CALC 48 mL/min (>60); GLUCOSE,RANDOM 101 mg/dL (70-110); POTASSIUM 4.2 mmol/L (3.5-5.1); SODIUM SERUM 141 mmol/L (136-145); UREA NITROGEN, BLOOD 19 mg/dL (7-18)
[2020-09-11 22:57] LABS: BASOPHILS % (AUTO) 0.5 % (0.0-2.0); EOSINOPHILS % (AUTO) 0.6 % (1.0-6.0); HEMATOCRIT 39.5 % (36-46); HEMOGLOBIN 13.3 g/dL (12.0-16.0); LYMPHOCYTES # (AUTO) 2.3 K/uL (1.0-4.8); LYMPHOCYTES % (AUTO) 27.8 % (22.0-44.0); MEAN CORPUSCULAR HEMOGLOBIN 34.1 pg (26.0-34.0); MEAN CORPUSCULAR HGB CONC 33.6 G/dL (31.0-37.0); MEAN CORPUSCULAR VOLUME 102 fL (80-100); MONOCYTES # (AUTO) 0.6 K/uL (0.1-1.0); MONOCYTES % (AUTO) 7.6 % (2.0-9.0); NEUTROPHILS # (AUTO) 5.2 K/uL (1.8-7.7); NEUTROPHILS % (AUTO) 63.5 % (40.0-70.0); PLATELET COUNT (AUTO) 237 K/uL (150-450); RED BLOOD CELL COUNT(AUTO) 3.89 MIL/uL (4.00-5.20); RED CELL DISTRIBUTION WIDTH 12.1 % (11.5-14.5)
[2020-09-11] MEDS: SODIUM CHLORIDE 0.9% 1,000 ML IV ONE ×2 (23:05→23:37)
[2020-09-11 23:21] LABS: ALANINE AMINOTRANSFERASE 29 U/L (12-78); ALBUMIN 3.8 g/dL (3.4-5.0); ALKALINE PHOSPHATASE 113 U/L (46-116); ASPARTATE AMINOTRANSFERASE 16 U/L (15-37); BILIRUBIN,TOTAL 0.2 mg/dL (0.1-1.0); HCG,QUANTITATIVE < 1 mIU/mL (0-6); PHENYTOIN (DILANTIN) 3.1 mcg/mL (10.0-20.0); TOTAL PROTEIN, SERUM 7.7 g/dL (6.4-8.2)
[2020-09-11] MEDS ORDERED: METOCLOPRAMIDE HCL 10 MG TABLET PO ONE (23:30)
[2020-09-11] MEDS ORDERED: KETOROLAC TROMETHAMINE 30 MG/ML VIAL IM ONE (23:30)
[2020-09-12 00:47] LABS: AMPHET/METH SCREEN,URINE NEGATIVE (NEGATIVE); BARBITURATE SCREEN, URINE NEGATIVE (NEGATIVE); BENZODIAZEPINES SCREEN,URINE NEGATIVE (NEGATIVE); CANNABINOID SCREEN,URINE NEGATIVE (NEGATIVE); COCAINE SCREEN,URINE NEGATIVE (NEGATIVE); METHADONE SCREEN, URINE NEGATIVE (NEGATIVE); OPIATE SCREEN,URINE NEGATIVE (NEGATIVE)
[2020-09-12 00:48] LABS: PHENCYCLIDINE SCREEN,URINE NEGATIVE (NEGATIVE)
[2020-09-12 02:13] VITALS: BP 102/50
== END 2020-09-12 02:17 | disposition home or self-care (01) ==
LOC: EMS 18:29
DX: R51.9 Headache, unspecified (principal); F41.9 Anxiety disorder, unspecified; F31.9 Bipolar disorder, unspecified; K21.9 Gastro-esophageal reflux disease without esophagitis; Z90.89 Acquired absence of other organs
CPT/HCPCS: 36415; 80053; 80185; 80307; 84702; 85025; 96372; 96374; 99285; G0480; J1100; J1200; J1885; J2765; J7030

== ENCOUNTER 2024-03-05 05:52 | Day surgery (SDC) | payer OTHER, MEDICAID ==
[~2024-03-05] VITALS: Ht 149.9 cm; Wt 77.3 kg
[~2024-03-05 05:52] MED LIST changes: -CHOL100044 PO; +LEVE250T81 PO; -LEVE500T53 PO; +LORA-1000 PO; -MIRT-89 PO; -PHENY100 PO
[2024-03-05] MEDS ORDERED: ONDANSETRON HCL 4 MG/2 ML VIAL ONE (06:20)
[2024-03-05] MEDS ORDERED: GLYCOPYRROLATE 0.2 MG/ML VIAL ONE (06:20)
[2024-03-05] MEDS ORDERED: LIDOCAINE/PF 2% 5 ML VIAL ONE (06:20)
[2024-03-05] MEDS ORDERED: ROCURONIUM BROMIDE 10 MG/ML 5 ML VIAL ONE (06:20)
[2024-03-05] MEDS ORDERED: SUGAMMADEX SODIUM 200 MG/2 ML VIAL IVP ONE (06:20)
[2024-03-05] MEDS ORDERED: PROPOFOL 1% ISO-OSM 1000 MG/100 ML BOTTLE ONE (06:20)
[2024-03-05] MEDS ORDERED: DEXAMETHASONE SOD PHOS 4 MG/ML VIAL ONE (06:20)
[2024-03-05] MEDS ORDERED: TOPI-97 PO (06:56)
[2024-03-05] MEDS ORDERED: LAMO-24 PO (06:56)
[2024-03-05] MEDS ORDERED: HYDR-4584 PO (06:56)
[2024-03-05] MEDS ORDERED: RINGERS SOLUTION,LACTATED 1,000 ML IV ONE ×2 (07:21→10:01)
[2024-03-05 07:35] LABS: EOSINOPHILS % (AUTO) 1.3 % (1.0-6.0); HEMATOCRIT 40.6 % (36-46); HEMOGLOBIN 13.7 g/dL (12.0-16.0); LYMPHOCYTES # (AUTO) 1.7 K/uL (1.0-4.8); LYMPHOCYTES % (AUTO) 27.8 % (22.0-44.0); MEAN CORPUSCULAR HEMOGLOBIN 31.3 pg (26.0-34.0); MEAN CORPUSCULAR HGB CONC 33.7 G/dL (31.0-37.0); MEAN CORPUSCULAR VOLUME 93 fL (80-100); MONOCYTES # (AUTO) 0.3 K/uL (0.1-1.0); MONOCYTES % (AUTO) 5.3 % (2.0-9.0); NEUTROPHILS # (AUTO) 4.1 K/uL (1.8-7.7); NEUTROPHILS % (AUTO) 64.6 % (40.0-70.0); PLATELET COUNT (AUTO) 294 K/uL (150-450); RED BLOOD CELL COUNT(AUTO) 4.37 MIL/uL (4.00-5.20); RED CELL DISTRIBUTION WIDTH 13.4 % (11.5-14.5); WHITE BLOOD COUNT (AUTO) 6.3 K/uL (4.5-11.0)
[2024-03-05 07:38] LABS: PROTHROMBIN TIME 10.3 SEC (9.4-11.6)
[2024-03-05 07:41] LABS: CALCIUM, TOTAL 8.9 mg/dL (8.8-10.5); CREATININE 0.99 mg/dL (0.60-1.30); POTASSIUM 3.5 mmol/L (3.5-5.1)
[2024-03-05 07:50] LABS: ALBUMIN 3.7 g/dL (3.4-5.0); BILIRUBIN,TOTAL 0.4 mg/dL (0.1-1.0); TOTAL PROTEIN, SERUM 7.6 g/dL (6.4-8.2)
[2024-03-05] MEDS ORDERED: CLINDAMYCIN 600 MG/D5% WATER 50 ML IV ONE (08:15)
[2024-03-05] MEDS: RINGERS SOLUTION,LACTATED 1,000 ML IV ONE (08:49)
[2024-03-05] MEDS ORDERED: MEPERIDINE-PF 25 MG/ML VIAL IVP PRN (09:30)
[2024-03-05] MEDS ORDERED: HYDROmorphone HCL 2 MG/ML SYRINGE IVP PRN (09:30)
[2024-03-05] MEDS ORDERED: FentaNYL CITRATE PF 100 MCG/2 ML VIAL IVP PRN (09:30)
[2024-03-05] MEDS ORDERED: KETOROLAC TROMETHAMINE 30 MG/ML VIAL ONE (11:23)
[2024-03-05] MEDS ORDERED: ACETAMINOPHEN 1000 MG/ISO-OSM 100 ML IV ONE (11:23)
[2024-03-05] MEDS: ACETAMINOPHEN 1000 MG/ISO-OSM 100 ML IV ONE (11:30)
[2024-03-05] MEDS: KETOROLAC TROMETHAMINE 30 MG/ML VIAL IVP ONE (11:31)
[2024-03-05] MEDS ORDERED: OXYGEN THERAPY IH SCH (20:00)
== END 2024-03-05 12:10 | disposition home or self-care (01) ==
LOC: SURGERY 05:52
PROVIDERS: ATTEND Dentist General Practice
DX: K02.9 Dental caries, unspecified (principal); K05.6 Periodontal disease, unspecified; F41.9 Anxiety disorder, unspecified; Z86.16 Personal history of COVID-19; Z87.891 Personal history of nicotine dependence; Z88.0 Allergy status to penicillin; Z88.8 Allergy status to other drugs, medicaments and biological substances; Z90.49 Acquired absence of other specified parts of digestive tract; Z98.891 History of uterine scar from previous surgery
CPT/HCPCS: 71045; 80053; 84703; 85025; 85610; 85730; 93005; J0131; J1100; J1885; J2405; J2704; J3490; J7120; 36415-L1; 36415-TC

== ENCOUNTER 2024-05-12 08:46 | Emergency (ER) | payer MEDICAID, OTHER ==
[~2024-05-12] VITALS: Ht 149.9 cm; Wt 86.4 kg
[~2024-05-12 08:46] MED LIST changes: +HYDR-4584 PO; +LAMO-24 PO; -LEVE250T81 PO; -LORA-1000 PO; -SULF1TAB42 PO; +TOPI-97 PO; -TOPI100T37 PO
[2024-05-12 08:51] VITALS: TEMP 98.5
[2024-05-12] MEDS ORDERED: HYDR50CA7 PO (08:54)
[2024-05-12] MEDS ORDERED: TOPI100T37 PO (08:54)
[2024-05-12] MEDS ORDERED: MECL-302 PO (08:54)
[2024-05-12] MEDS ORDERED: IBUP-1492 PO ×2 (08:54→10:29)
[2024-05-12] MEDS: IBUPROFEN 600 MG TABLET PO ONE (10:22)
[2024-05-12] MEDS: CLINDAMYCIN HCL 150 MG CAPSULE PO ONE (10:22)
[2024-05-12] MEDS ORDERED: CLIN300C58 PO (10:25)
[2024-05-12 11:00] VITALS: BP 128/70; PULSE 88; RESP 18; O2SAT 99
[2024-05-12] MEDS: OxyCODONE HCL/ACETAMINOPHEN 5-325 MG TABLET PO ONE (11:25)
== END 2024-05-12 11:34 | disposition home or self-care (01) ==
LOC: EMS 08:46
DX: K02.9 Dental caries, unspecified (principal); F41.9 Anxiety disorder, unspecified; K21.9 Gastro-esophageal reflux disease without esophagitis; F13.20 Sedative, hypnotic or anxiolytic dependence, uncomplicated; Z88.0 Allergy status to penicillin; Z90.49 Acquired absence of other specified parts of digestive tract
CPT/HCPCS: 99284; Z7502; Z7610